=== PATIENT | female | born 1965 | race Two or more races ===

== ENCOUNTER 2017-05-28 16:29 | Emergency (ER) | payer OTHER ==
[~2017-05-28] VITALS: Ht 157.5 cm; Wt 65.3 kg
[2017-05-28 16:51] VITALS: BP 132/84
== END 2017-05-28 17:16 | disposition home or self-care (01) ==
LOC: ER 16:35
DX: L03.213 Periorbital cellulitis (principal)
CPT/HCPCS: A4606; Z7610

== ENCOUNTER 2017-05-30 09:16 | Emergency (ER) | payer OTHER ==
[~2017-05-30] VITALS: Ht 157.5 cm; Wt 64.9 kg
[2017-05-30 09:34] VITALS: BP 158/91
== END 2017-05-30 10:17 | disposition home or self-care (01) ==
LOC: ER 09:18
DX: L03.213 Periorbital cellulitis (principal)
CPT/HCPCS: A4606; Z7610